=== PATIENT | female | born 1990 | race Caucasian/White ===

== ENCOUNTER 2018-05-16 04:44 | Emergency (ER) | payer OTHER ==
[2018-05-16 04:56] VITALS: TEMP 98.4
--- NOTE | 2018-05-16 05:03 | ED PDOC ---
Arrival/HPI - General Chief Complaint: Female Genitourinary Time Seen by Provider: 05/16/18 04:49 Historian: Patient - History of Present Illness Narrative History of Present Illness (Text): 05/16/18 04:58 Bari Villavicencio is a 27 year old female who presents to the Emergency department complaining of lower abdominal pain. Patient states she has been experiencing suprapubic abdominal pain with associated dysuria since 00:00 today. Patient denies any fever, chills, chest pain, shortness of breath, nausea, vomiting, diarrhea, neck pain, headache, dizziness, or any other complaint. Time/Duration: 4-6 hours Symptom Onset: Gradual Symptom Course: Unchanged Activities at Onset: Light Context: Home Past Medical History - Provider Review Nursing Documentation Reviewed: Yes - Psychiatric Hx Substance Use: No Family/Social History - Physician Review Nursing Documentation Reviewed: Yes Family/Social History: Unknown Family HX Smoking Status: Never Smoked Hx Alcohol Use: No Hx Substance Use: No Allergies/Home Meds Allergies/Adverse Reactions: Allergies No Known Allergies Allergy (Verified 05/16/18 04:58) Review of Systems - Physician Review All systems were reviewed & negative as marked: Yes - Review of Systems Constitutional: Normal. absent: Fevers Eyes: Normal ENT: Normal Respiratory: Normal. absent: SOB, Cough Cardiovascular: Normal. absent: Chest Pain Gastrointestinal: Abdominal Pain. absent: Diarrhea, Nausea, Vomiting Genitourinary Female: Dysuria Musculoskeletal: absent: Neck Pain Skin: Normal. absent: Rash Neurological: Normal. absent: Headache, Dizziness Endocrine: Normal Hemo/Lymphatic: Normal Psychiatric: Normal Physical Exam Vital Signs Reviewed: Yes Vital Signs Temp Pulse Resp BP Pulse Ox 05/16/18 06:23 80 18 118/69 100 05/16/18 04:56 98.4 F 78 20 112/72 99 Temperature: Afebrile Blood Pressure: Normal Pulse: Regular Respiratory Rate: Normal Appearance: Positive for: Well-Appearing, Non-Toxic, Comfortable Pain Distress: None Mental Status: Positive for: Alert and Oriented X 3 - Systems Exam Head: Present: Atraumatic, Normocephalic Pupils: Present: PERRL Extroacular Muscles: Present: EOMI Conjunctiva: Present: Normal Mouth: Present: Moist Mucous Membranes Neck: Present: Normal Range of Motion Respiratory/Chest: Present: Clear to Auscultation, Good Air Exchange. No: Respiratory Distress, Accessory Muscle Use Cardiovascular: Present: Regular Rate and Rhythm, Normal S1, S2. 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 No: Vaginal Discharge, Vaginal Bleeding, Vaginal Lesions Back: Present: Normal Inspection Upper Extremity: Present: Normal Inspection. No: Cyanosis, Edema Lower Extremity: Present: Normal Inspection. No: Edema Neurological: Present: GCS=15, CN II-XII Intact, Speech Normal Skin: Present: Warm, Dry, Normal Color. No: Rashes Psychiatric: Present: Alert, Oriented x 3, Normal Insight, Normal Concentration Medical Decision Making ED Course and Treatment: 05/16/18 04:58 Impression: 27 year old female complaining of suprapubic abdominal pain and dysuria. Differential Diagnosis included but are not limited to: UTI Plan: -- Labs -- UA -- Toradol -- Reassess and disposition Progress Notes: 05/16/18 06:00 Labs reviewed, Urinalysis consistent with UTI. On re-evaluation, patient feels better and is in no acute distress. I have discussed the results and plan with the patient, who expresses understanding. Patient in agreement with plan to be discharged home. Patient is stable for discharge. Patient was instructed to follow up with physician or return if symptoms worsen or new concerning symptoms arise. - Lab Interpretations Microbiology Results: Microbiology Results 05/16/18 05:00 Urine,Clean Catch Urine Culture - Final Gram Negative Nate Lab Results: 05/16/18 05:15 05/16/18 05:15 Lab Results 05/16/18 05:15: Sodium 143, Potassium 4.0, Chloride 104, Carbon Dioxide 25, Anion Gap 18, BUN 13, Creatinine 0.7, Est GFR ( Amer) > 60, Est GFR (Non- Af Amer) > 60, Random Glucose 100, Calcium 9.5, Total Bilirubin 0.4, AST 33, ALT 41, Alkaline Phosphatase 85, Total Protein 8.9 H, Albumin 4.7, Globulin 4.2 , Albumin/Globulin Ratio 1.1 05/16/18 05:15: WBC 7.3, RBC 5.22, Hgb 11.7 L, Hct 35.9 L, MCV 68.8 L, MCH 22.4 L, MCHC 32.6, RDW 15.5 H, Plt Count 273, MPV 9.7, Gran % 57.7, Lymph % (Auto) 30.7, [place] % (Auto) 5.5, Eos % (Auto) 5.8 H, Baso % (Auto) 0.3, Gran # 4.20, Lymph # (Auto) 2.2, [place] # (Auto) 0.4, Eos # (Auto) 0.4, Baso # (Auto) 0.02 05/16/18 05:00: Urine Color Yellow, Urine Appearance Sl cloudy, Urine pH 6.5, Ur Specific [place] <= 1.005, Urine Protein Trace H, Urine Glucose (UA) Negative , Urine Ketones Negative, Urine Blood Large H, Urine Nitrate Negative, Urine Bilirubin Negative, Urine Urobilinogen 0.2, Ur Leukocyte Esterase Large H, Urine RBC 1 - 3, Urine WBC 15 - 20, Ur Epithelial Cells 0 - 2, Urine Bacteria Few I have reviewed the lab results: Yes - Medication Orders Current Medication Orders: Discontinued Medications Cephalexin Monohydrate (Keflex) 500 mg PO STAT STA PRN Reason: Protocol Stop: 05/16/18 06:01 Last Admin: 05/16/18 06:10 Dose: 500 mg Ketorolac Tromethamine (Toradol) 30 mg IM ONCE ONE Stop: 05/16/18 05:16 Last Admin: 05/16/18 05:23 Dose: 30 mg MAR Pain Assessment Document 05/16/18 05:23 CNR (Rec: 05/16/18 05:24 CNR [id number]) Pain Reassessment Is this a pain reassessment? No IM Administration Charges Document 05/16/18 05:23 CNR (Rec: 05/16/18 05:24 CNR [id number]) Charges for Administration # of IM Administrations 1 - Scribe Statement The provider has reviewed the documentation as recorded by the Payal Gilliland Provider Scribe Attestation: All medical record entries made by the Scribe were at my direction and personally dictated by me. I have reviewed the chart and agree that the record accurately reflects my personal performance of the history, physical exam, medical decision making, and the department course for this patient. I have also personally directed, reviewed, and agree with the discharge instructions and disposition. Disposition/Present on Arrival - Present on Arrival Any Indicators Present on Arrival: No History of DVT/PE: No History of Uncontrolled Diabetes: No Urinary Catheter: No History of Decub. Ulcer: No History Surgical Site Infection Following: None - Disposition Have Diagnosis and Disposition been Completed?: Yes Diagnosis: Urinary tract infection Disposition: HOME/ ROUTINE Disposition Time: 06:04 Condition: IMPROVED Discharge Instructions (ExitCare): Urinary Tract Infections in Adults Prescriptions: Cephalexin [Keflex] 500 mg PO BID #14 capsule Phenazopyridine [Pyridium] 200 mg PO PC #6 tab Forms: [employer] (Serbian)
[2018-05-16 05:26] LABS: PH,URINE 6.5 (4.7-8.0); URINE BILIRUBIN NEGATIVE (NEGATIVE); URINE BLOOD LARGE (NEGATIVE); URINE GLUCOSE (UA) NEGATIVE (NEGATIVE); URINE LEUKOCYTE ESTERASE LARGE Leu/uL (NEGATIVE); URINE PROTEIN TRACE mg/dL (<30 mg/dL); URINE UROBILINOGEN 0.2 E.U./dL (<1 E.U./dL)
[2018-05-16 05:27] LABS: URINE APPEARANCE SL CLOUDY (CLEAR); URINE COLOR YELLOW (YELLOW)
[2018-05-16 05:45] LABS: BASO # 0.02 K/mm3 (0.0-2.0); BASO % 0.3 % (0.0-3.0); EOS # 0.4 (0.0-0.7); EOS % 5.8 % (1.5-5.0); GRAN # 4.2 (1.4-6.5); GRAN % 57.7 % (50.0-68.0); HEMOGLOBIN 11.7 g/dL (12.0-16.0); LYMPH # 2.2 (1.2-3.4); LYMPH % 30.7 % (22.0-35.0); MEAN CELL VOLUME 68.8 fl (80.0-105.0); MEAN CORPUSCULAR HEMOGLOBIN 22.4 pg (25.0-35.0); MEAN CORPUSCULAR HGB CONC 32.6 g/dl (31.0-37.0); MEAN PLATELET VOLUME 9.7 fl (7.0-11.0); MONO # 0.4 (0.1-0.6); MONO % 5.5 % (1.0-6.0); RBC 5.22 10^6/uL (3.5-6.1); RED CELL DISTRIBUTION WIDTH 15.5 % (11.5-14.5); WHITE BLOOD COUNT 7.3 10^3/ul (4.5-11.0)
[2018-05-16 05:46] LABS: URINE BACTERIA FEW (NEG); URINE EPITHELIAL CELLS 0 - 2 /hpf (0-5); URINE WBC 15 - 20 /hpf (0-6)
[2018-05-16 05:48] LABS: ALB/GLOB RATIO 1.1 (1.1-1.8); ALBUMIN 4.7 g/dL (3.0-4.8); ALT/SGPT 41 U/L (7-56); AST/SGOT 33 U/L (14-36); BLOOD UREA NITROGEN 13 mg/dL (7-21); CALCIUM 9.5 mg/dL (8.4-10.5); GFR AFRICAN-AMERICAN > 60; GFR NON-AFRICAN AMERICAN > 60
[2018-05-16 06:24] VITALS: BP 118/69; PULSE 80; RESP 18; O2SAT 100
== END 2018-05-16 06:23 | disposition home or self-care (01) ==
LOC: ED 04:44
DX: N39.0 Urinary tract infection, site not specified (principal)
CPT/HCPCS: 80053; 81001; 85025; 87086; 96372; 99283; J1885

== ENCOUNTER 2018-11-09 15:43 | Emergency (ER) | payer MEDICAID, OTHER ==
--- NOTE | 2018-11-09 16:18 | ED PDOC ---
Arrival/HPI - General Historian: Patient - History of Present Illness Narrative History of Present Illness (Text): 11/09/18 16:19 A 28 year old female, with no significant past medical history, presents to the emergency department complaining of suprapubic abdominal pain, dysuria and hematuria starting yesterday at approximately 17:00. Patient reports has been unable to sit or sleep due to the pain. States she has been here in the ER for similar complaints, and was diagnosed at the time with UTI. Of note, patient mentions taking Azel for pain, however has had no relief. Patient denies any vaginal bleeding/discharge, or any this time. LMP 10/11/18, and is currently sexually active. <Osmin Feldman - Last Filed: 11/09/18 19:04> <Shania Geiger PA-C - Last Filed: 11/12/18 17:02> - General Chief Complaint: Female Genitourinary Time Seen by Provider: 11/09/18 15:49 Past Medical History - Provider Review Nursing Documentation Reviewed: Yes - Infectious Disease Hx of Infectious Diseases: None - Reproductive Menopause: No - Psychiatric Hx Substance Use: No - Anesthesia Hx Anesthesia: No <Osmin Feldman - Last Filed: 11/09/18 19:04> Family/Social History - Physician Review Nursing Documentation Reviewed: Yes Family/Social History: No Known Family HX Smoking Status: Never Smoked Hx Alcohol Use: No Hx Substance Use: No <Osmin Feldman - Last Filed: 11/09/18 19:04> Allergies/Home Meds <Osmin Feldman - Last Filed: 11/09/18 19:04> <Shania Geiger PA-C - Last Filed: 11/12/18 17:02> Allergies/Adverse Reactions: Allergies No Known Allergies Allergy (Verified 05/16/18 04:58) Home Medications: Home Meds Medication Instructions Recorded Confirmed Phenazopyridine HCl [Azo Standard] 0 mg PO 11/09/18 Review of Systems - Physician Review All systems were reviewed & negative as marked: Yes - Review of Systems Gastrointestinal: Abdominal Pain (suprapubic region) Genitourinary Female: Dysuria, Hematuria. absent: Vaginal Bleeding, Vaginal Discharge <Osmin Feldman - Last Filed: 11/09/18 19:04> Physical Exam Appearance: Positive for: Well-Appearing Pain Distress: None Mental Status: Positive for: Alert and Oriented X 3 - Systems Exam Head: Present: Atraumatic, Normocephalic Pupils: Present: PERRL Extroacular Muscles: Present: EOMI Conjunctiva: Present: Normal Mouth: Present: Moist Mucous Membranes Neck: Present: Normal Range of Motion Respiratory/Chest: Present: Clear to Auscultation, Good Air Exchange. No: Respiratory Distress, Accessory Muscle Use Cardiovascular: Present: Regular Rate and Rhythm, Normal S1, S2. No: Murmurs Abdomen: Present: Tenderness (suprapubic region tenderness). No: Distention, Peritoneal Signs Back: Present: CVA Tenderness (left-side) Upper Extremity: Present: Normal Inspection. No: Cyanosis, Edema Lower Extremity: Present: Normal Inspection. No: Edema Neurological: Present: GCS=15, CN II-XII Intact, Speech Normal Skin: Present: Warm, Dry, Normal Color. No: Rashes Psychiatric: Present: Alert, Oriented x 3, Normal Insight, Normal Concentration <Osmin Feldman - Last Filed: 11/09/18 19:04> Vital Signs Temp Pulse Resp BP Pulse Ox 11/09/18 19:20 98.1 F 81 18 105/78 99 11/09/18 18:51 81 18 104/61 99 11/09/18 16:30 75 18 110/75 98 <Shania Geiegr PA-C - Last Filed: 11/12/18 17:02> Medical Decision Making ED Course and Treatment: 11/09/18 16:22 Impression: 28 year old female with suprapubic abdominal pain, dysuria, and hematuria. Physical exam shows suprapubic tenderness and left- CVA tenderness. Differential Diagnosis included but are not limited to: --UTI --Pyelonephritis --Kidney Stones Plan: --Rocephin --Toradol -- Urinalysis -- Urine Culture -- POC Urine Test -- Reassess and disposition Prior Visits: Notes and results from previous visits were reviewed. Patient was last seen here in the emergency department on 05/16/2018 for lower abdominal pain. Patient was dicharged home with dx UTI. Progress Notes: 11/09/18 17:29 - Lab Interpretations Lab Results: Lab Results 11/09/18 14:20: Urine Color Yajaira, Urine Appearance Cloudy, Urine pH 6.0, Ur Specific [place] 1.010, Urine Protein 100 H, Urine Glucose (UA) 100 H, Urine Ketones Negative, Urine Blood Large H, Urine Nitrate Positive H, Urine Bilirubin Negative, Urine Urobilinogen 2.0 H, Ur Leukocyte Esterase Large H, Urine RBC Tntc H, Urine WBC Tntc H, Ur Epithelial Cells 10 - 12 H I have reviewed the lab results: Yes <Osmin Feldman - Last Filed: 11/09/18 19:04> - Lab Interpretations Microbiology Results: Microbiology Results 11/09/18 14:20 Urine,Clean Catch Urine Culture - Final Methicillin Resistant S Aureus Lab Results: Lab Results 11/09/18 17:37: Influenza Typ A,B (EIA) Negative for flu a/b 11/09/18 14:20: Urine Color Yajaira, Urine Appearance Cloudy, Urine pH 6.0, Ur Specific [place] 1.010, Urine Protein 100 H, Urine Glucose (UA) 100 H, Urine Ketones Negative, Urine Blood Large H, Urine Nitrate Positive H, Urine Bilirubin Negative, Urine Urobilinogen 2.0 H, Ur Leukocyte Esterase Large H, Urine RBC Tntc H, Urine WBC Tntc H, Ur Epithelial Cells 10 - 12 H - Medication Orders Current Medication Orders: Discontinued Medications Ceftriaxone Sodium (Rocephin 1 Gram Ivpb) 1 gm in 100 mls @ 100 mls/hr IVPB STAT STA; Protocol Stop: 11/09/18 18:27 Last Admin: 11/09/18 17:41 Dose: 100 mls/hr eMAR Start Stop Document 11/09/18 17:41 BB (Rec: 11/09/18 17:47 BB [place] [id number] Intravenous Solution Start Date 11/09/18 Start Time 17:47 End Date 11/09/18 End time 18:47 Total Infusion Time 60 Ketorolac Tromethamine (Toradol) 30 mg IVP STAT STA Stop: 11/09/18 17:29 Last Admin: 11/09/18 17:40 Dose: 30 mg MAR Pain Assessment Document 11/09/18 17:40 BB (Rec: 11/09/18 17:41 BB [id number]-) Pain Reassessment Is this a pain reassessment? No Sleep Is patient sleeping during reassessment? No Presence of Pain Presence of Pain Yes Pain Scale Used Protocol: PSCALES Pain Scale Used Numeric Location Pain Location Body Site Abdomen Description Description Constant Intensity of Pain at present 8 Pain Behavior Withdrawal from Touch IVP Administration Document 11/09/18 17:40 BB (Rec: 11/09/18 17:41 BB [id number]) Charges for Administration # of IVP Administrations 1 <Shania Geiger PA-C - Last Filed: 11/12/18 17:02> - Scribe Statement The provider has reviewed the documentation as recorded by the Scribe Kenzie Kessler Provider Scribe Attestation: All medical record entries made by the Scribe were at my direction and personally dictated by me. I have reviewed the chart and agree that the record accurately reflects my personal performance of the history, physical exam, medical decision making, and the department course for this patient. I have also personally directed, reviewed, and agree with the discharge instructions and disposition. <Osmin Feldman - Last Filed: 11/09/18 19:04> Disposition/Present on Arrival - Present on Arrival Any Indicators Present on Arrival: No History of DVT/PE: No History of Uncontrolled Diabetes: No Urinary Catheter: No History of Decub. Ulcer: No History Surgical Site Infection Following: None - Disposition Have Diagnosis and Disposition been Completed?: Yes Disposition Time: 17:55 Patient Plan: Discharge <Osmin Feldman - Last Filed: 11/09/18 19:04> - Notes Notes (Text): 11/12/18 16:59 Pt called, urine cx +MRSA, sensitive to bactrim, pt initially Rx keflex. Rx sent to her pharmacy, advised to follow up with pmd. <Shania Geiger PA-C - Last Filed: 11/12/18 17:02> - Disposition Diagnosis: UTI (urinary tract infection) Disposition: HOME/ ROUTINE Condition: GOOD Discharge Instructions (ExitCare): Urinary Tract Infection, Adult (DC) Print Language: BULGARIAN Additional Instructions: All medical record entries made by the Scribe were at my direction and persona lly dictated by me. I have reviewed the chart and agree that the record accurately reflects my personal performance of the history, physical exam, medical decision making, and the department course for this patient. I have also personally directed, reviewed, and agree with the discharge instructions and disposition. Prescriptions: Cephalexin [cephalexin] 500 mg PO BID 5 Days #10 cap Phenazopyridine HCl [Pyridium] 200 mg PO TID 2 Days #6 tablet Sulfamethoxazole/Trimethoprim [Bactrim DS 800 mg-160 mg] 1 tab PO BID #14 tab Referrals: Toma Bradley MD [Primary Care Provider] - Follow up with primary Forms: [employer] (Albanian)
[2018-11-09 16:54] LABS: URINE BILIRUBIN NEGATIVE (NEGATIVE); URINE BLOOD LARGE (NEGATIVE); URINE GLUCOSE (UA) 100 mg/dL (NEGATIVE); URINE LEUKOCYTE ESTERASE LARGE Leu/uL (NEGATIVE); URINE PROTEIN 100 mg/dL (<30 mg/dL)
[2018-11-09 17:01] LABS: URINE APPEARANCE CLOUDY (CLEAR); URINE COLOR AMBER (YELLOW); URINE RBC TNTC /hpf (0-2); URINE WBC TNTC /hpf (0-6)
[2018-11-09] MEDS ORDERED: cefTRIAXone 1 gm 1 GM/100 ML BAG IVPB STA (17:28)
[2018-11-09 18:52] VITALS: PULSE 81; RESP 18; O2SAT 99
[2018-11-09 19:21] VITALS: BP 105/78; TEMP 98.1
== END 2018-11-09 19:15 | disposition home or self-care (01) ==
LOC: ED 15:43
DX: N39.0 Urinary tract infection, site not specified (principal)
CPT/HCPCS: 81001; 87086; 87181; 87804; 96365; 96375; 99284; J0696; J1885